=== PATIENT | male | born 1935 | race Caucasian/White ===

== ENCOUNTER → 2020-03-14 | Outpatient (CLI) | payer BC ==
--- NOTE | 2020-03-14 09:01 | KCIC ---
BRAIN W/O CONTRAST History:Reason: PARKINSON'S DISEASAE / Spl. Instructions: / History: Atypical right sided tremor, not responding to meds. Technique: Multiplanar, multi sequential MR imaging was performed of the brain without contrast. Comparison: None Findings: No acute infarct. No intracranial hemorrhage. No mass effect. No hydrocephalus. Brain parenchymal volume loss. Mild foci of FLAIR hyperintensities within the hemispheric white matter, most often due to chronic microvascular ischemia. Imaged orbits are unremarkable. Mild left maxillary sinus mucosal thickening. Mastoid air cells are clear. Impression: 1. No acute intracranial abnormality. Electronically signed by: Alfonzo Ayala DO (03/14/2020 8:58 AM) [id number]
== END ==
LOC: KCIC MRI 07:48
PROVIDERS: ATTEND Psychiatry & Neurology Neurology with Special Qualifications in Child Neurology
DX: G20 Parkinson's disease (principal)
CPT/HCPCS: 70551